=== PATIENT | male | born 1955 | race Caucasian/White ===

== ENCOUNTER 2016-09-07 07:27 | Outpatient (CLI) | payer MEDICARE, OTHER ==
[2014-04-20 20:00] VITALS: BP 119/85
[2016-09-07 08:08] LABS: BASOPHILS % 0.5 (0.0-1.5); EOSINOPHILS % 2.1 % (0.0-6.8); MEAN CORPUSCULAR HEMOGLOBIN 30.8 pg (28.0-34.0); MEAN CORPUSCULAR VOLUME 96.9 fl (80.0-100.0); MONOCYTES % 2.9 % (0.0-11.0); NEUTROPHILS # 6.6 # k/uL (1.4-7.7)
[2016-09-07 21:41] LABS: VALPROIC ACID LEVEL 25.8 ug/mL (50.0-100.0)
== END 2016-09-07 07:30 ==
LOC: LAB 07:27
PROVIDERS: ATTEND Family Medicine
DX: E03.9 Hypothyroidism, unspecified (principal); D64.9 Anemia, unspecified; G40.909 Epilepsy, unspecified, not intractable, without status epilepticus
CPT/HCPCS: 36415; 80164; 80188; 83540; 84443; 85025

== ENCOUNTER 2016-09-28 06:49 | Emergency (ER) | payer MEDICARE, OTHER ==
[2016-09-28 07:08] VITALS: BP 102/68
--- NOTE | 2016-09-28 07:27 | ED Physician Documentation ---
General Adult - HISTORIAN Historian: patient - HPI Stated Complaint: laceration Chief Complaint: General Adult Onset: hours Timing: still present Severity: mild Further Comments: yes (Pt is a 60 yo male with severe MR who fell from his wheelchair at [employer] and sustained a laceration to his L forehead, above his eyebrow.) - ROS CONST: other (Pt cannot give ROS) - PAST HX Past History: other (meningitis, seizures, spasticity, hypothyroid, MR) Allergies/Adverse Reactions: Allergies Allergy/AdvReac Type Severity Reaction Status Date / Time phenytoin sodium Allergy Verified 09/28/16 06:59 [From Dilantin] phenytoin sodium extended Allergy Verified 09/28/16 06:59 [From Dilantin] Home Medications: Ambulatory Orders Medication Instructions Recorded Polyethylene Glycol 3350 17 g PO DAILY PRN #[id number] 05/24/12 - SOCIAL HX Smoking History: non-smoker - FAMILY HX Family History: No - VITAL SIGNS Vital Signs: Vital Signs Temp Pulse Resp BP Pulse Ox 98.1 F 84 14 102/68 96 09/28/16 07:03 09/28/16 07:03 09/28/16 07:03 09/28/16 07:03 09/28/16 07:03 - REVIEWED ASSESSMENTS Nursing Assessment Reviewed: Yes Vitals Reviewed: Yes Procedures Wound Location: head, other (L forehead) Wound Length: 2 cm Wound's Depth, Shape: superficial Wound Explored: clean Irrigated w/ Saline (ccs): 10 Betadine Prep?: No Wound Debrided: minimal Wound Repaired With: steri-strips, Dermabond Progress - Progress Progress: Tetanus utd. General Adult Physical Exam - PHYSICAL EXAM GENERAL APPEARANCE: no distress EENT: eye inspection normal NECK: supple RESPIRATORY: no resp distress, chest non-tender CVS: reg rate & rhythm, heart sounds normal BACK: normal inspection SKIN: other (2 cm superficial laceration, L forehead) EXTREMITIES: other (contractures) NEURO: other (baseline mental status, MR) Discharge Clincal Impression: Forehead laceration Qualifiers: Encounter type: initial encounter Qualified Code(s): S01.81XA - Laceration without foreign body of other part of head, initial encounter Referrals: En Dey MD [Primary Care Provider] - Home Medications: Ambulatory Orders Polyethylene Glycol 3350 17 g PO DAILY PRN #[id number] 05/24/12 Condition: Good Disposition: 01 HOME, SELF-CARE Decision to Admit: NO Decision Time: 07:27
== END 2016-09-28 07:45 | disposition home or self-care (01) ==
LOC: ED 06:49
DX: S01.81XA Laceration without foreign body of other part of head, initial encounter (principal); X58.XXXA Exposure to other specified factors, initial encounter; Y93.9 Activity, unspecified; Y99.9 Unspecified external cause status
CPT/HCPCS: 12011; 99283

== ENCOUNTER 2016-10-01 14:16 | Outpatient (CLI) | payer MEDICARE, OTHER ==
[2016-10-01 14:47] LABS: BASOPHILS % 1.6 (0.0-1.5); MEAN CORPUSCULAR HEMOGLOBIN 31.2 pg (28.0-34.0); MEAN CORPUSCULAR VOLUME 93.2 fl (80.0-100.0); NEUTROPHILS # 1.9 # k/uL (1.4-7.7)
[2016-10-01 15:10] LABS: eGFR (African) > 60; eGFR (Non-African) > 60
--- NOTE | 2016-10-01 15:46 | Diagnostic Imaging Report ---
FELICIANO GARCIA [facility] [id number] [facility].[address] [address] Report Submission Date: Oct 01, 2016 3:45:04 PM CDT Patient Study Name: ODILIA RIVAS Date: Oct 01, 2016 2:40:25 PM CDT Modality Type: CR Gender: M Description: ABDOMEN : 59 Institution: [facility] Physician: FELICIANO GARCIA Examination: Obstruction series History: Abdominal discomfort Findings: Single view obtained of the abdomen. No abnormal dilation of small bowel. Air and stool throughout the large bowel. Significant amount of stool identified throughout the entire large bowel. No suspicious calcification projecting over the renal fossa or the pelvic region. Osseous structures are appropriate for age. Impression: Significant stool within the large bowel: constipation. No obstruction. Electronically signed on Oct 01, 2016 3:45:04 PM CDT by: Candido AQUINO
== END 2016-10-01 14:17 ==
LOC: RAD 14:16
PROVIDERS: ATTEND Family Medicine
DX: R63.0 Anorexia (principal); G40.909 Epilepsy, unspecified, not intractable, without status epilepticus
CPT/HCPCS: 36415; 74000; 80053; 84443; 85025

== ENCOUNTER 2016-11-25 07:03 | Outpatient (CLI) | payer MEDICARE, OTHER | END 2016-11-25 07:04 | LOC: LAB 07:03 | PROVIDERS: ATTEND Family Medicine | DX: G40.909 Epilepsy, unspecified, not intractable, without status epilepticus (principal) | CPT/HCPCS: 36415; 80164 ==

== ENCOUNTER 2016-12-22 15:58 | Outpatient (CLI) | payer MEDICARE, OTHER ==
[2016-12-22 16:36] LABS: BASOPHILS % 0.9 (0.0-1.5); EOSINOPHILS % 3.6 % (0.0-6.8); MEAN CORPUSCULAR HEMOGLOBIN 29.8 pg (28.0-34.0); MEAN CORPUSCULAR VOLUME 93.1 fl (80.0-100.0); MONOCYTES % 5.7 % (0.0-11.0); NEUTROPHILS # 2.7 # k/uL (1.4-7.7)
[2016-12-22 16:57] LABS: eGFR (African) > 60; eGFR (Non-African) > 60
== END 2016-12-22 16:00 ==
LOC: LAB 15:58
PROVIDERS: ATTEND Family Medicine
DX: R53.83 Other fatigue (principal); G40.909 Epilepsy, unspecified, not intractable, without status epilepticus
CPT/HCPCS: 36415; 80053; 80188; 83540; 84443; 85025

== ENCOUNTER 2017-09-07 08:07 | Outpatient (CLI) | payer MEDICARE, OTHER ==
[2017-09-07 08:57] LABS: BASOPHILS % 0.5 (0.0-1.5); EOSINOPHILS % 2.2 % (0.0-6.8); MEAN CORPUSCULAR HEMOGLOBIN 31.3 pg (28.0-34.0); MEAN CORPUSCULAR VOLUME 92.6 fl (80.0-100.0); MONOCYTES % 4.3 % (0.0-11.0); NEUTROPHILS # 5.4 # k/uL (1.4-7.7)
[2017-09-07 09:03] LABS: eGFR (African) > 60; eGFR (Non-African) > 60
[2017-09-07 17:19] LABS: VALPROIC ACID LEVEL 30.7 ug/mL (50.0-100.0)
[2017-09-07 19:31] LABS: SERUM IRON 30 ug/dL (59-158)
== END 2017-09-07 08:10 ==
LOC: LAB 08:07
PROVIDERS: ATTEND Nurse Practitioner Family
DX: Z12.5 Encounter for screening for malignant neoplasm of prostate (principal); E03.4 Atrophy of thyroid (acquired); E61.1 Iron deficiency; G40.409 Other generalized epilepsy and epileptic syndromes, not intractable, without status epilepticus
CPT/HCPCS: 36415; 80053; 80061; 80164; 80188; 83540; 83550; 84153; 84443; 85025

== ENCOUNTER 2017-11-08 08:32 | Outpatient (CLI) | payer MEDICARE, OTHER ==
[2017-11-08 09:19] LABS: MEAN CORPUSCULAR HEMOGLOBIN 31.8 pg (28.0-34.0); MEAN CORPUSCULAR VOLUME 95.6 fl (80.0-100.0)
[2017-11-08 11:04] LABS: eGFR (African) > 60; eGFR (Non-African) > 60
[2017-11-08 17:56] LABS: VALPROIC ACID LEVEL 19.4 ug/mL (50.0-100.0)
== END 2017-11-08 08:33 ==
LOC: LAB 08:32
PROVIDERS: ATTEND Nurse Practitioner Family
DX: G40.909 Epilepsy, unspecified, not intractable, without status epilepticus (principal); E03.9 Hypothyroidism, unspecified
CPT/HCPCS: 36415; 80053; 80164; 80188; 84439; 84443; 85027

== ENCOUNTER 2018-11-22 09:01 | Outpatient (CLI) | payer MEDICARE, OTHER ==
[2018-11-22 09:41] LABS: BASOPHILS % 0.3 % (0.0-1.5); NEUTROPHILS # 3.1 # k/uL (1.4-7.7)
== END 2018-11-22 09:03 ==
LOC: LAB 09:01
PROVIDERS: ATTEND Nurse Practitioner Family
DX: K71.0 Toxic liver disease with cholestasis (principal)
CPT/HCPCS: 36415; 85025

== ENCOUNTER 2018-12-23 09:17 | Outpatient (CLI) | payer MEDICARE, OTHER ==
[2018-12-30 08:16] LABS: BASOPHILS % 0.4 % (0.0-1.5); NEUTROPHILS # 2.9 # k/uL (1.4-7.7)
== END 2018-12-23 10:00 ==
LOC: LAB 09:17
PROVIDERS: ATTEND Nurse Practitioner Family
DX: R71.0 Precipitous drop in hematocrit (principal); R41.1 Anterograde amnesia
CPT/HCPCS: 36415; 82607; 82746; 83540; 83550; 85025; 85045